=== PATIENT | female | born 1930 | race Caucasian/White ===

== ENCOUNTER 2016-11-11 09:11 | Inpatient (IN) | payer MEDICARE ==
[2016-11-11] MEDS ORDERED: ATENOLOL 25 MG TAB PO STA (10:26)
[2016-11-11] MEDS ORDERED: LISINOPRIL 20 MG TAB PO STA (10:27)
--- NOTE | 2016-11-11 11:01 | XR ---
EXAMINATION TYPE: XR chest 1V portable DATE OF EXAM: 11/11/2016 COMPARISON: 01/22/2015 HISTORY: Fall TECHNIQUE: Single frontal view of the chest is obtained. FINDINGS: There is no focal air space opacity, pleural effusion, or pneumothorax seen. There is pulm onary hyperinflation and biapical lucency compatible with underlying COPD. Cardiac silhouette is enla rged with a dual lead left-sided cardiac device in place. No displaced fractures are seen. IMPRESSION: 1. No acute cardiopulmonary process. 2. No displaced fractures.
--- NOTE | 2016-11-11 11:02 | XR ---
EXAMINATION TYPE: XR pelvis AP view DATE OF EXAM: 11/11/2016 CLINICAL HISTORY: pain TECHNIQUE: Single view the pelvis is submitted. FINDINGS: Small cortical protuberance inferior pubic ramus on the left could reflect small avulsion o r chip type fracture. Correlate clinically with point tenderness. Joint spaces are well-preserved. S I joints appear symmetric. IMPRESSION: 1. Small cortical protuberance inferior pubic ramus on the left could reflect small avulsion or chip type fracture. Correlate clinically with point tenderness.
--- NOTE | 2016-11-11 11:03 | XR ---
EXAMINATION TYPE: XR Hip Complete LT DATE OF EXAM: 11/11/2016 COMPARISON: NONE HISTORY: Pain TECHNIQUE: 2 views submitted FINDINGS: There is no evidence of erosive change or acute fracture. Mild concentric narrowing the joint space. Mild hypertrophic change of the acetabulum can result in f emoral acetabular impingement. IMPRESSION: 1. No evidence of acute fracture or dislocation. If there is high clinical suspicion then consider CT scan. 2. 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
[2016-11-11 11:45] LABS: Basophils % (A) 0 %; CH 31.9; CHCM 34.2; Eosinophils # (A) 0.1 k/uL (0-0.7); Eosinophils % (A) 1 %; HCT 43.9 % (34.0-46.0); HDW 2.67; HGB 14.7 gm/dL (11.4-16.0); Luc # (Auto) 0.07; Luc % (Auto) 1; Lymphocytes # (A) 1.3 k/uL (1.0-4.8); Lymphocytes % (A) 14 %; MCH 31.4 pg (25.0-35.0); MCHC 33.5 g/dL (31.0-37.0); MCV 93.7 fL (80.0-100.0); Mean Platelet Volume 9.2; Monocytes # (A) 0.5 k/uL (0-1.0); Monocytes % (A) 5 %; Neutrophils # (A) 7.5 k/uL (1.3-7.7); Neutrophils % (A) 80 %; RBC 4.68 m/uL (3.80-5.40); RDW 14.1 % (11.5-15.5); WBC 9.4 k/uL (3.8-10.6); WBC (Perox) 9.23
[2016-11-11 11:49] LABS: INR 1.3 (<1.2); Partial Thromboplastin Time 28.5 sec (22.0-30.0); Prothrombin Time 13.2 sec (9.0-12.0)
[2016-11-11 11:52] LABS: ALT 43 U/L (9-52); AST 43 U/L (14-36); Alkaline Phosphatase 66 U/L (38-126); Anion Gap 8 mmol/L; Blood Urea Nitrogen 24 mg/dL (7-17); Calcium 9.3 mg/dL (8.4-10.2); Carbon Dioxide 27 mmol/L (22-30); Chloride 107 mmol/L (98-107); Glucose 75 mg/dL (74-99); Non-African American GFR(MDRD) >60 (>60 ml/min/1.73 sqM); Sodium 142 mmol/L (137-145); Total Bilirubin 0.9 mg/dL (0.2-1.3); Total Protein 6.6 g/dL (6.3-8.2)
[2016-11-11 11:55] LABS: Potassium 4.6 mmol/L (3.5-5.1)
--- NOTE | 2016-11-11 13:31 | CT ---
EXAMINATION TYPE: CT pelvis wo con DATE OF EXAM: 11/11/2016 COMPARISON: NONE HISTORY: Fall, Lt hip pain CT DLP: 291.1 mGycm Automated exposure control for dose reduction was used. Unenhanced CT of the pelvis was performed. Bone and soft tissue window settings are submitted. FINDINGS: There is nondisplaced fracture involving the inferior pubic ramus on the left. No additional fracture s are identified with certainty. Degenerative narrowing of bilateral hip joints and sacroiliac joints . Severe degenerative disc disease L5-S1 with posterior disc bulging encapsulating spur. IMPRESSION: VIRTUALLY NONDISPLACED FRACTURE LEFT INFERIOR PUBIC RAMUS.
--- NOTE | 2016-11-11 14:25 | ED ---
General Adult HPI - General Chief complaint: Fall Stated complaint: Fall-Hip Pain Time Seen by Provider: 11/11/16 09:17 Source: patient, family, EMS, RN notes reviewed Mode of arrival: EMS Limitations: no limitations - History of Present Illness Initial comments: 86 female with past medical history of atrial fibrillation on Xarelto presents status post fall. Patient was moving a throw rug and tripped falling onto her left side. She is complaining of left hip pain. Pain is sharp and nonradiating. 5 out of 10. No head or neck trauma, no loss of consciousness. Patient denies any chest pain or abdominal pain. Denies palpitations or lightheadedness prior to the fall. Fall was mechanical in nature. She does have a history of a pacemaker placement secondary to atrial fibrillation. - Related Data Home Medications Medication Instructions Recorded Confirmed Latanoprost Ophth [Xalatan 0.005%] 1 drop LEFT EYE HS 01/08/15 11/11/16 Lisinopril [Prinivil] 20 mg PO DAILY 01/08/15 11/11/16 Atenolol [Tenormin] 25 mg PO BID 11/08/15 11/11/16 Previous Rx's Medication Instructions Recorded Rivaroxaban [Xarelto] 15 mg PO DAILY #30 tab 04/22/14 Allergies Allergy/AdvReac Type Severity Reaction Status Date / Time No Known Allergies Allergy Verified 11/11/16 09:48 Review of Systems ROS Statement: Those systems with pertinent positive or pertinent negative responses have been documented in the HPI. ROS Other: All systems not noted in ROS Statement are negative. Past Medical History Past Medical History: Atrial Flutter, CVA/TIA, Eye Disorder, Hyperlipidemia, Hypertension, Syncope Additional Past Medical History / Comment(s): Pt states she had a TIA back in 2001. pt states she has changed her deit to improve her chostol and is unsure of what it is now. Other HX: TIA 2001, HTN which pt has been weaned and taken off of her htn med. She has not had her B/P med for approximately 6 months. Constipation which is well managed with metamucil. History of Any Multi-Drug Resistant Organisms: None Reported Past Surgical History: Adenoidectomy, Hysterectomy, Tonsillectomy Additional Past Surgical History / Comment(s): Bilateral cataract surgery with lens implants. Colonoscopy with was normal. Past Anesthesia/Blood Transfusion Reactions: No Reported Reaction Additional Past Anesthesia/Blood Transfusion Reaction / Comment(s): Pt has never recieved blood. Past Psychological History: No Psychological Hx Reported Smoking Status: Never smoker Past Alcohol Use History: None Reported Past Drug Use History: None Reported - Past Family History Father Family Medical History: Myocardial Infarction ([place]) Additional Family Medical History / Comment(s): Father of blood infection that caused myocardial infarction when he was 27 yrs old Mother Family Medical History: Cancer Additional Family Medical History / Comment(s): Mother of cancer in her throat believed to be caused by her being a smoker. General Exam Limitations: no limitations General appearance: alert, in no apparent distress Head exam: Present: atraumatic, normocephalic Eye exam: Present: normal appearance, PERRL, EOMI ENT exam: Present: normal exam Neck exam: Present: normal inspection, full ROM. Absent: tenderness, meningismus Respiratory exam: Present: normal lung sounds bilaterally. Absent: respiratory distress, wheezes Cardiovascular Exam: Present: normal rhythm, bradycardia GI/Abdominal exam: Present: soft. Absent: distended, tenderness, guarding Extremities exam: Present: normal inspection, tenderness, normal capillary refill, other (Tenderness with rotation of the left lower extremity). Absent: pedal edema Back exam: Present: normal inspection, full ROM. Absent: tenderness Neurological exam: Present: alert, oriented X3, CN II-XII intact. Absent: motor sensory deficit Psychiatric exam: Present: normal affect, normal mood Skin exam: Present: warm, dry, intact. Absent: cyanosis, diaphoretic Course Vital Signs 11/11/16 11/11/16 11/11/16 09:16 10:19 10:27 Temperature 97.0 F L Pulse Rate 53 L 50 L 50 L Respiratory 20 20 18 Rate Blood Pressure 213/91 180/86 210/93 O2 Sat by Pulse 98 95 98 Oximetry 11/11/16 11/11/16 11/11/16 10:52 11:08 12:10 Temperature Pulse Rate 50 L Respiratory 17 Rate Blood Pressure 204/89 199/88 163/76 O2 Sat by Pulse 98 Oximetry 11/11/16 11/11/16 13:00 13:47 Temperature Pulse Rate 65 77 Respiratory 18 18 Rate Blood Pressure 123/68 131/64 O2 Sat by Pulse 96 95 Oximetry EKG Findings - EKG Comments: EKG Findings:: With a rate of 59, AR interval 208, QRS duration 78, QTC [address] segment elevation or depression Medical Decision Making - Medical Decision Making 86 yo female presenting status post ground-level fall which was mechanical. Patient has left hip pain. X-ray shows no acute bony abnormalities. There is high clinical suspicion for cold fracture CT of the pelvis is obtained which does show a left inferior ramus fracture which is nondisplaced. Chest x-ray shows no acute findings. Laboratory studies including CBC, CMP, is unremarkable. Case is discussed with transferring facility Radha Carbajal. Patient will be transferred for evaluation by orthopedic surgery. Patient is agreeable with this plan. Diagnosis: Nondisplaced left inferior pubic rami fracture - Lab Data Result diagrams: 11/11/16 11:27 11/11/16 11:27 Lab Results 11/11/16 11/11/16 11/11/16 Range/Units 11:27 11:27 11:27 WBC 9.4 (3.8-10.6) k/uL RBC 4.68 (3.80-5.40) m/uL Hgb 14.7 (11.4-16.0) gm/dL Hct 43.9 (34.0-46.0) % MCV 93.7 (80.0-100.0) fL MCH 31.4 (25.0-35.0) pg MCHC 33.5 (31.0-37.0) g/dL RDW 14.1 (11.5-15.5) % Plt Count 120 L (150-450) k/uL Neutrophils % 80 % Lymphocytes % 14 % Monocytes % 5 % Eosinophils % 1 % Basophils % 0 % Neutrophils # 7.5 (1.3-7.7) k/uL Lymphocytes # 1.3 (1.0-4.8) k/uL Monocytes # 0.5 (0-1.0) k/uL Eosinophils # 0.1 (0-0.7) k/uL Basophils # 0.0 (0-0.2) k/uL PT (9.0-12.0) sec INR (<1.2) APTT (22.0-30.0) sec Sodium 142 (137-145) mmol/L Potassium 4.6 (3.5-5.1) mmol/L Chloride 107 (98-107) mmol/L Carbon Dioxide 27 (22-30) mmol/L Anion Gap 8 mmol/L BUN 24 H (7-17) mg/dL Creatinine 0.84 (0.52-1.04) mg/dL Est GFR (MDRD) Af Amer >60 (>60 ml/min/1.73 sqM) Est GFR (MDRD) Non-Af >60 (>60 ml/min/1.73 sqM) Glucose 75 (74-99) mg/dL Calcium 9.3 (8.4-10.2) mg/dL Total Bilirubin 0.9 (0.2-1.3) mg/dL AST 43 H (14-36) U/L ALT 43 (9-52) U/L Alkaline Phosphatase 66 (38-126) U/L Total Protein 6.6 (6.3-8.2) g/dL Albumin 3.8 (3.5-5.0) g/dL Blood Type A Positive Blood Type Recheck CABO Indicated Antibody Screen NEGATIVE Spec Expiration Date 11/14/2016 - 232611/11/16 Range/Units 11:27 WBC (3.8-10.6) k/uL RBC (3.80-5.40) m/uL Hgb (11.4-16.0) gm/dL Hct (34.0-46.0) % MCV (80.0-100.0) fL MCH (25.0-35.0) pg MCHC (31.0-37.0) g/dL RDW (11.5-15.5) % Plt Count (150-450) k/uL Neutrophils % % Lymphocytes % % Monocytes % % Eosinophils % % Basophils % % Neutrophils # (1.3-7.7) k/uL Lymphocytes # (1.0-4.8) k/uL Monocytes # (0-1.0) k/uL Eosinophils # (0-0.7) k/uL Basophils # (0-0.2) k/uL PT 13.2 H (9.0-12.0) sec INR 1.3 H (<1.2) APTT 28.5 (22.0-30.0) sec Sodium (137-145) mmol/L Potassium (3.5-5.1) mmol/L Chloride (98-107) mmol/L Carbon Dioxide (22-30) mmol/L Anion Gap mmol/L BUN (7-17) mg/dL Creatinine (0.52-1.04) mg/dL Est GFR (MDRD) Af Amer (>60 ml/min/1.73 sqM) Est GFR (MDRD) Non-Af (>60 ml/min/1.73 sqM) Glucose (74-99) mg/dL Calcium (8.4-10.2) mg/dL Total Bilirubin (0.2-1.3) mg/dL AST (14-36) U/L ALT (9-52) U/L Alkaline Phosphatase (38-126) U/L Total Protein (6.3-8.2) g/dL Albumin (3.5-5.0) g/dL Blood Type Blood Type Recheck Antibody Screen Spec Expiration Date Disposition Clinical Impression: Fall, Pubic ramus fracture Disposition: OTHER INSTITUTION NOT DEFINED Condition: Stable Referrals: Samy Aburto MD [Primary Care Provider] - 1-2 days - Out of Hospital Transfer - Req. Specs Out of Hospital Transfer - Requested Specifics: Other Non-Acute (Dr. Baldev Carbajal)
[2016-11-11] MEDS ORDERED: ONDANSETRON 4 MG/2 ML VIAL IVP PRN (14:49)
[2016-11-11] MEDS ORDERED: NALOXONE 0.4 MG/ML 1 ML VIAL IV PRN (14:49)
[2016-11-11] MEDS ORDERED: ACETAMINOPHEN TAB 325 MG TAB PO PRN (14:49)
[2016-11-11] MEDS ORDERED: MORPHINE SULFATE 4 MG/ML SYRINGE IV PRN (14:49)
[2016-11-11] MEDS: SODIUM CHLORIDE 0.9% 1,000 ML IV SCH (15:10)
[2016-11-11 18:04] VITALS: BMI 22.6
[2016-11-11] MEDS: LATANOPROST 0.005% OPHTH DROPS 2.5 ML BTL LEFT EYE SCH (21:42)
[2016-11-11] MEDS: ATENOLOL 25 MG TAB PO SCH (21:44)
[2016-11-12] MEDS: ATENOLOL 25 MG TAB PO SCH ×2 (08:11→21:12)
[2016-11-12] MEDS: LISINOPRIL 20 MG TAB PO SCH (08:11)
--- NOTE | 2016-11-12 10:40 | P.HPOR ---
History of Present Illness H&P Date: 11/12/16 Chief Complaint: Left hip pain Patient is a pleasant 86-year-old female seen at bedside this morning. She was admitted through the emergency department yesterday, 11/11/2016 after a fall at home resulted in pain at the left hip with ambulating and weightbearing. She slipped while pulling a throw rug. She did not lose consciousness or hit her head. X-rays and computed tomography scan of the pelvis revealed a minimally displaced left inferior pubic rami fracture. No acute appearing femur or hip fracture seen. She was admitted to orthopedics for further evaluation, treatment recommendations. She has no new complaints this morning. She has some left hip pain. The pain is controlled with rest. She denies any radicular complaints including numbness, tingling or weakness. She has no calf pain. Review of systems is negative for fever, chills, chest pain, nausea, vomiting, dizziness, headaches or shortness of breath. Review of Systems All systems: negative Constitutional: Denies chills, Denies fever Eyes: denies blurred vision, denies pain Ears, nose, mouth and throat: Denies headache, Denies sore throat Cardiovascular: Denies chest pain, Denies shortness of breath Respiratory: Denies cough Gastrointestinal: Denies abdominal pain, Denies diarrhea, Denies nausea, Denies vomiting Genitourinary: Denies dysuria, Denies hematuria Musculoskeletal: Denies myalgias Integumentary: Denies pruritus, Denies rash Neurological: Denies numbness, Denies weakness Psychiatric: Denies anxiety, Denies depression Endocrine: Denies fatigue, Denies weight change Past Medical History Past Medical History: Atrial Flutter, CVA/TIA, Eye Disorder, Hyperlipidemia, Hypertension, Syncope Additional Past Medical History / Comment(s): Pt states she had a TIA back in 2001. pt states she has changed her deit to improve her chostol and is unsure of what it is now. Other HX: TIA 2001, HTN which pt has been weaned and taken off of her htn med. She has not had her B/P med for approximately 6 months. Constipation which is well managed with metamucil. History of Any Multi-Drug Resistant Organisms: None Reported Past Surgical History: Adenoidectomy, Hysterectomy, Tonsillectomy Additional Past Surgical History / Comment(s): Bilateral cataract surgery with lens implants. Colonoscopy with was normal. Past Anesthesia/Blood Transfusion Reactions: No Reported Reaction Additional Past Anesthesia/Blood Transfusion Reaction / Comment(s): Pt has never recieved blood. Past Psychological History: No Psychological Hx Reported Additional Psychological History / Comment(s): Pt lives with son but is in her own attached apartment. She is independent. she performs all her own ADL's. She cooks her own food. She drives a car. She uses no assistive devices. Smoking Status: Never smoker Past Alcohol Use History: None Reported Past Drug Use History: None Reported - Past Family History Father Family Medical History: Myocardial Infarction ([place]) Additional Family Medical History / Comment(s): Father of blood infection that caused myocardial infarction when he was 27 yrs old Mother Family Medical History: Cancer Additional Family Medical History / Comment(s): Mother of cancer in her throat believed to be caused by her being a smoker. Medications and Allergies Home Medications Medication Instructions Recorded Confirmed Type RX: Latanoprost Ophth [Xalatan 1 drop LEFT EYE HS 01/08/15 11/11/16 History 0.005%] RX: Lisinopril [Prinivil] 20 mg PO DAILY 01/08/15 11/11/16 History Atenolol [Tenormin] 25 mg PO BID 11/08/15 11/11/16 History Allergies Allergy/AdvReac Type Severity Reaction Status Date / Time No Known Allergies Allergy Verified 11/11/16 09:48 Physical Examination Inspection of the lower extremities is benign. There is no active wounds, lacerations, bleeding, erythema or ecchymoses. Neurovascular status is intact with full motor and sensation throughout bilateral lower extremities. Calves are soft and nontender. 2+ dorsalis pedis pulses and less than 2 second cap refill is present distally. Range of motion of the right hip is benign with active flexion, adduction and abduction. Mild pain with active flexion, adduction and abduction of the left hip. Painless range of motion of bilateral knees, ankle, feet and toes. Results CT of the pelvis shows a minimally displaced left inferior pubic rami fracture. There is no acute appearing hip fractures. No femoral neck fractures or intertrochanteric fractures. - Labs Labs: Abnormal Lab Results - Last 24 Hours (Table) 11/11/16 11/11/16 11/11/16 Range/Units 11:27 11:27 11:27 Plt Count 120 L (150-450) k/uL PT 13.2 H (9.0-12.0) sec INR 1.3 H (<1.2) BUN 24 H (7-17) mg/dL AST 43 H (14-36) U/L H & H 11/11/16 Range/Units 11:27 Hgb 14.7 (11.4-16.0) gm/dL Hct 43.9 (34.0-46.0) % Coagulation 11/11/16 Range/Units 11:27 INR 1.3 H (<1.2) Result Diagrams: 11/11/16 11:27 11/11/16 11:27 - Diagnostic results Hip x-ray: report reviewed, image reviewed Hip CT: report reviewed, image reviewed Assessment and Plan (1) Pubic ramus fracture Narrative/Plan: The patient has been reviewed with Dr. Dyer as well as he has seen her studies. We have recommended weightbearing as tolerated and walking with assist including a walker. No surgical intervention is planned. Continue with pain management, medical management and DVT prophylaxis. She would benefit from transfer to an extended care facility for 1-2 weeks. She may be transferred in the next 1-2 days from an orthopedic standpoint. Status: Acute Time with Patient: Less than 30
[2016-11-12] MEDS ORDERED: HYDROcodone/APAP 5-325MG 1 EACH TAB PO PRN (10:41)
[2016-11-12] MEDS: RIVAROXABAN 15 MG TAB PO SCH (11:24)
[2016-11-12 11:38] LABS: Glucose,Whole Blood 91 mg/dL (75-99)
[2016-11-12] MEDS: SODIUM CHLORIDE 0.9% 1,000 ML IV SCH (18:35)
[2016-11-12] MEDS: LATANOPROST 0.005% OPHTH DROPS 2.5 ML BTL LEFT EYE SCH (21:12)
[2016-11-13] MEDS: RIVAROXABAN 15 MG TAB PO SCH (08:07)
[2016-11-13] MEDS: ATENOLOL 25 MG TAB PO SCH ×2 (08:07→21:39)
[2016-11-13] MEDS: LISINOPRIL 20 MG TAB PO SCH (08:07)
--- NOTE | 2016-11-13 14:13 | P.PN ---
Progress Note - Text Patient is a very pleasant 86-year-old female who is seen and examined at bedside for follow-up evaluation for left inferior pubic rami fracture. Patient states she continues to have some pain on the left side of the pelvis during movement. She has difficulty with getting to the bedside and moving onto a bedpan. She states her pain is well-controlled while lying still. She is quite pleasant has no new complaints. She's been eating and voiding without difficulty. Patient states she was seen and examined this morning by Dr. Aburto but nursing states no orders have been placed for medical consult. Per Dr. Dyer, he would like further evaluation and treatment by medicine. Patient will plan to remain in the hospital over the weekend with plans to discharge to rehabilitation facility this coming 11/15/2016. Patient has no new complaints today. Physical Exam: Patient is awake, alert, and oriented 3 Vital signs stable Good chest excursion with deep inspiration and expiration Abdomen soft nontender No signs or symptoms of DVT; no calf pain Extensor hallucis longus, plantarflexion, and dorsiflexion positive sustained bilateral lower extremities No pain with internal and external rotation of the hips bilaterally Neurovascularly intact bilateral lower extremities Assessment: Left inferior pubic rami fracture Left-sided pelvic pain Status post fall Plan: 1. Patient may continue to weight-bear as tolerated on the left lower extremity and is encouraged to use a walker to aid in ambulation as needed. We' re not currently planing for any acute surgical intervention. We'll plan to have the patient remain in the hospital over the weekend with plans to discharge to rehabilitation facility this coming 11/07/2016. Patient states she would like to work with therapy to see if she is able to increase her mobility and ambulation. I discussed with her at feel this is appropriate and would encourage her to try to increase her mobility and ambulation. We will continue pain control with [place] 5 mg/325 mg. I will also plan to place a consult for Dr. Aburto in medicine for regular medical management. 2. Dr. Aburto to see and examine the patient for further medical management 3. We will continue follow patient closely 4. Patient has been discussed in detail with Dr. Dyer and he agrees with this plan
[2016-11-13] MEDS: SODIUM CHLORIDE 0.9% 1,000 ML IV SCH (16:05)
--- NOTE | 2016-11-13 21:25 | CONS ---
CHIEF COMPLAINT: Pain in the left hip. HISTORY OF PRESENT ILLNESS: This is another admission for this 86 -year-old white female who fell inside her home and landed on the left hip. She came into the emergency room where she was found to have a pelvic fracture. Hip was intact. She has a history of chronic atrial fibrillation with congestive heart failure which is well controlled. She denies any syncope, chest pain, focal or neurological deficits, etc. REVIEW OF SYSTEMS: She has had no headaches, change in vision, or the hearing, focal neurological symptoms, shortness of breath, cough, hemoptysis, palpitations, chest pain, syncope, abdominal pain, nausea and vomiting, diarrhea , melena, hematochezia, jaundice, renal disease, frequency, urgency, dysuria, flank pain, diabetes, etc. PAST MEDICAL HISTORY, FAMILY HISTORY, PERSONAL AND SOCIAL HISTORY: Otherwise unremarkable. She is not allergic to any medications. She is on Lisinopril 20 mg a day, Xarelto 15 mg once a day, Latanoprost ophthalmic solution 0.005% in the left eye once a day, Atenolol 25 mg once a day , Vitamin D3 1000 units a day. Hospitalizations and operations: She was admitted for arrhythmia a year or two ago. Currently has a pacemaker. She never smoked and she does not drink. PHYSICAL EXAMINATION: Blood pressure is 130/76 with a pulse of 74 and irregularly irregular. Respiratory rate 16. In general, she appeared to well developed, well nourished, awake and alert. Skin color is normal. Skin is warm and dry. Lymph nodes not enlarged. Head, ears, eyes, nose, mouth and throat were normal. Carotids ( ). There are no bruits. Neck veins not distended. Thyroid was not enlarged. Chest clear to auscultation and percussion. Cardiac exam demonstrated atrial fibrillation with no murmurs or extra sounds. Abdomen is soft, nontender without visceromegaly or masses. Extremities normal except for left hip. Neurological: Intact. IMPRESSION: 1. Pelvic fracture. 2. Atrial fibrillation with history of congestive heart failure. 3. Bradycardia. RECOMMENDATIONS: None. She is doing well. She should be continued on coagulation and discharged to rehab once she is stable. [facility]
--- NOTE | 2016-11-13 21:27 | PN ---
DATE OF SERVICE: 11/13/16 CHIEF COMPLAINT: Fracture of the left pelvis. HISTORY OF PRESENT ILLNESS: This lady is doing well. She has had no problems. She has had no fever, chills, shortness of breath, abdominal pain, etc. PHYSICAL EXAMINATION: Chest is clear. Cardiac exam is unchanged. Abdomen soft, nontender. IMPRESSION: 1. Pelvic fracture. 2. Atrial fibrillation with history of tachycardia. PLAN: 1. No change in program. 2. To rehab on Tuesday. [facility]
[2016-11-13] MEDS: LATANOPROST 0.005% OPHTH DROPS 2.5 ML BTL LEFT EYE SCH (21:39)
[2016-11-14] MEDS: RIVAROXABAN 15 MG TAB PO SCH (07:52)
[2016-11-14] MEDS: ATENOLOL 25 MG TAB PO SCH ×2 (07:52→21:30)
[2016-11-14] MEDS: LISINOPRIL 20 MG TAB PO SCH (07:52)
--- NOTE | 2016-11-14 10:28 | P.PN ---
Progress Note - Text Patient is a very pleasant 86-year-old female who is seen and examined at bedside for follow-up evaluation for left inferior pubic rami fracture. Patient states she continues to have some pain on the left side of the pelvis during movement. He states since being seen examined yesterday, she was able to transfer to the bedside commode without significant difficulty and without significant pain. She states she did have some pain while trying to transfer back to the bed. She states she did have a bowel movement yesterday. She's not currently complaining of any abdominal pain. She states her pain is well- controlled while lying still. She is quite pleasant and has no new complaints. She's been eating and voiding without difficulty. Patient will plan to remain in the hospital over the weekend with plans to discharge to rehabilitation facility this coming 11/15/2016. Physical Exam: Patient is awake, alert, and oriented 3 Vital signs stable Good chest excursion with deep inspiration and expiration Abdomen soft nontender No signs or symptoms of DVT; no calf pain Extensor hallucis longus, plantarflexion, and dorsiflexion positive sustained bilateral lower extremities No pain with internal and external rotation of the hips bilaterally Neurovascularly intact bilateral lower extremities Assessment: Left inferior pubic rami fracture Left-sided pelvic pain Status post fall Plan: 1. Patient may continue to weight-bear as tolerated on the left lower extremity and is encouraged to use a walker to aid in ambulation as needed. We' re not currently planing for any acute surgical intervention. We'll plan to have the patient remain in the hospital over the weekend with plans to discharge to rehabilitation facility this coming 11/07/2016. Patient states she would like to work with therapy to see if she is able to increase her mobility and ambulation. I discussed with her at feel this is appropriate and would encourage her to try to increase her mobility and ambulation. We will continue pain control with [place] 5 mg/[address] Aburto will continue to follow the patient for further medical management 3. We will continue follow patient closely 4. Patient has been discussed in detail with Dr. Dyer and he agrees with this plan
[2016-11-14] MEDS: SODIUM CHLORIDE 0.9% 1,000 ML IV SCH (17:50)
[2016-11-14] MEDS: LATANOPROST 0.005% OPHTH DROPS 2.5 ML BTL LEFT EYE SCH (21:30)
[2016-11-15] MEDS: LISINOPRIL 20 MG TAB PO SCH (08:06)
[2016-11-15] MEDS: RIVAROXABAN 15 MG TAB PO SCH (08:06)
[2016-11-15] MEDS: ATENOLOL 25 MG TAB PO SCH (08:06)
--- NOTE | 2016-11-15 14:11 | P.DS ---
Providers Date of admission: 11/11/16 14:49 Expected date of discharge: 11/15/16 Attending physician: Raul Dyer Consults: 11/13/16 14:08 Consult Physician Routine Consulting Provider: Samy Aburto Consult Reason/Comments: Medical Management Do you want consulting provider notified?: Yes Primary care physician: Samy Aburto - Discharge Diagnosis(es) (1) Pubic ramus fracture Patient is a pleasant 86-year-old female that was admitted through the emergency department on November 11, 2016. Studies done in the emergency department showed a left inferior pubic rami fracture. She was admitted to orthopedics for further evaluation and management. We recommended weightbearing as tolerated with walker and assist. Also recommended pain management and further care and at an extended care facility. Her hospital course has remained without complication. On day of discharge she is afebrile, vital signs stable, labs within acceptable ranges, benign lower extremities that are neurovascularly intact with 2+ pulses and active motor and positive sensation throughout her lower extremities. Her calves are soft and nontender. Her abdomen is soft nontender. She is tolerating by mouth meds and diet, pain controlled, voiding without difficulty, positive bowel movement, denying calf pain, fever, chills, chest pain or shortness of breath. Review of systems is negative for numbness, tingling, weakness, headaches, slurred speech, dizziness or other. Current Visit: Yes Status: Acute Priority: Medium Patient Condition at Discharge: Stable Plan - Discharge Summary New Discharge Prescriptions: New Docusate [Colace] 100 mg PO BID #60 capsule HYDROcodone/APAP 5-325MG [Whiting 5-325] 1 tab PO Q4HR PRN #60 tab PRN Reason: Pain Continue Rivaroxaban [Xarelto] 15 mg PO DAILY #30 tab Latanoprost Ophth [Xalatan 0.005%] 1 drop LEFT EYE HS Lisinopril [Prinivil] 20 mg PO DAILY Atenolol [Tenormin] 25 mg PO BID Discharge Medication List Rivaroxaban [Xarelto] 15 mg PO DAILY #30 tab 04/22/14 [Rx] Latanoprost Ophth [Xalatan 0.005%] 1 drop LEFT EYE HS 01/08/15 [History] Lisinopril [Prinivil] 20 mg PO DAILY 01/08/15 [History] Atenolol [Tenormin] 25 mg PO BID 11/08/15 [History] Docusate [Colace] 100 mg PO BID #60 capsule 11/12/16 [Rx] HYDROcodone/APAP 5-325MG [Whiting 5-325] 1 tab PO Q4HR PRN #60 tab 11/12/16 [Rx] Follow up Appointment(s)/Referral(s): Samy Aburto MD [Primary Care Provider] - 1-2 days Raul Dyer MD [Medical Doctor] - 2 Weeks Activity/Diet/Wound Care/Special Instructions: Weight-bear as tolerated with walker Follow-up with Dr. Dyer in office Take meds as directed Discharge Disposition: TRANSFER TO SNF/ECF
[2016-11-15 15:18] VITALS: BP 120/71; PULSE 71; RESP 18; TEMP 98.4
[2016-11-15] MEDS: SODIUM CHLORIDE 0.9% 1,000 ML IV SCH (16:39)
--- NOTE | 2016-11-17 09:28 | PN ---
DATE OF SERVICE: 11/14/2016 CHIEF COMPLAINT: Pelvic fracture. HISTORY OF PRESENT ILLNESS: This lady is doing well and is feeling fine. She expects to go to the [facility] tomorrow. She does not have pain when she is bearing weight. PHYSICAL EXAM: Her chest is clear and cardiac exam demonstrates atrial fibrillation and abdomen is soft, nontender. IMPRESSION: 1. Fracture of the pelvis. 2. Atrial fibrillation. PLAN: long-term tomorrow. ASHELY
--- NOTE | 2016-11-17 09:31 | PN ---
DATE OF SERVICE: 11/15/2016 CHIEF COMPLAINT: Pelvic fracture. HISTORY OF PRESENT ILLNESS: This lady is doing well and expects to go to the [facility] today. PHYSICAL EXAM: Her chest is clear and cardiac exam demonstrates atrial fibrillation. The abdomen is soft, nontender. IMPRESSION: Fracture of the pelvis. PLAN: Probably move to a [facility] today. ASHELY
== END 2016-11-15 17:38 | DRG 536 ==
LOC: EC 09:11 → 4MS4W 14:49
PROVIDERS: ADMIT Orthopaedic Surgery; ATTEND Orthopaedic Surgery
DX: S32.592A Other specified fracture of left pubis, initial encounter for closed fracture (principal); I11.0 Hypertensive heart disease with heart failure; I50.9 Heart failure, unspecified; I48.2 Chronic atrial fibrillation; E78.5 Hyperlipidemia, unspecified; K59.00 Constipation, unspecified; Z79.01 Long term (current) use of anticoagulants; Z79.899 Other long term (current) drug therapy; Z86.73 Personal history of transient ischemic attack (TIA), and cerebral infarction without residual deficits; Z90.710 Acquired absence of both cervix and uterus; Z98.42 Cataract extraction status, left eye; Z98.41 Cataract extraction status, right eye; Z96.1 Presence of intraocular lens; Z95.0 Presence of cardiac pacemaker; W01.0XXA Fall on same level from slipping, tripping and stumbling without subsequent striking against object, initial encounter; Y92.009 Unspecified place in unspecified non-institutional (private) residence as the place of occurrence of the external cause; Y93.01 Activity, walking, marching and hiking
CPT/HCPCS: 36415; 71010; 72170; 72192; 73502; 80053; 85025; 85610; 85730; 86850; 86900; 86901; 93005; 96360; 96361; 99285

== ENCOUNTER → 2017-01-10 | Outpatient (CLI) | payer MEDICARE ==
--- NOTE | 2017-01-10 18:48 | BD ---
EXAMINATION TYPE: MG DEXA axial skeleton. DATE OF EXAM: 01/10/2017 COMPARISON: NONE CLINICAL HISTORY: PT IS A 86 YR OLD FEMALE...ICD10 CODE: M81.0 KNOWN OSTEOPOROSIS Height: 62.8 Weight: 145 FRAX RISK QUESTIONS: Alcohol (3 or more units per day): NO Family History (Parent hip fracture): NO Glucocorticoids (More than 3mos): NO (Ex: prednisone, prednisolone, methylprednisolone, dexamethasone, and hydrocortisone). History of Fracture in Adulthood: YES Secondary Osteoporosis: NO 1. Type 1 Diabetes: NO 2. Hyperthyroidism: NO 3. Menopause before 45: NO 4. Malnutrition: NO 5. Chronic liver disease: NO Rheumatoid Arthritis: NO Current Tobacco Use: NO RISK FACTORS HISTORY OF: , OCT 2016 Family History of Osteoporosis: UNSURE Active: BEST SHE CAN Diet low in dairy products/other sources of calcium: NO Postmenopausal woman: HYST AT AGE 43 Lost more than 2 inches in height since high school: YES Frequent falls: UNSTEADY, ELDERLY Poor Health: JUST FRAIL Hyperparathyroidism: NO Adrenal Insufficiency: NO MEDICATIONS: Additional Medications: CALCIUM AND VIT D, BP MEDS, XER ALTO Additional History: NONE TO NOTE EXAM MEASUREMENTS: Bone mineral densitometry was performed using the [employer] System. Bone mineral density as measured about the Lumbar spine is: ----- L1-L4(G/cm2): 0.853 T Score Values are as follows: ----- L1: -3.3 ----- L2: -2.9 ----- L3: -2.4 ----- L4: -3.2 ----- L1-L4: -2.9 Bone mineral density FIRST BONE DENSITY AT [facility] Bone mineral density about the R hip (g/cm2): 0.884 Bone mineral density about the L hip (g/cm2): 0.866 T Score values are as follows: -----R Neck: -1.6 -----L Neck: -1.8 -----R Total: -1.0 -----L Total: -1.1 Bone mineral density FIRST SCAN AT [facility] FOR HER FRAX%'S: THERE IS A 18.4% CHANCE OF A MAJOR OSTEOPOROTIC FX AND A 5.2% FOR HIP FX.....PROBABILITY O F FX IN 10 YRS TIME IMPRESSION: 1. Osteoporosis (T Score less than -2.5) as noted by T Score values at the lumbar spine There is increased fracture risk and therapy is usually indicated based on age. Re-Screen 1-2 years. Osteopenia (T Score between -2.5 and -1 as noted by T score values at the bilateral hips There is slightly increased risk of fracture and the patient may be considered for treatment. Re-Screen 2-5 years. NOTE: T-SCORE=SD OF THE YOUNG ADULT MEAN.
== END | disposition home or self-care (01) ==
LOC: RADBDWWP 14:55
PROVIDERS: ATTEND Family Medicine
DX: M81.0 Age-related osteoporosis without current pathological fracture (principal); M85.851 Other specified disorders of bone density and structure, right thigh; M85.852 Other specified disorders of bone density and structure, left thigh
CPT/HCPCS: 77080

== ENCOUNTER 2017-02-02 11:17 | Inpatient (IN) | payer MEDICARE ==
[2017-02-02] MEDS ORDERED: SODIUM CHLORIDE 0.9% 500 ML IV STA (12:02)
--- NOTE | 2017-02-02 12:11 | ED ---
General Adult HPI - General Chief complaint: Urogenital Stated complaint: UNABLE TO URINATE Time Seen by Provider: 02/02/17 11:39 Source: patient, family, RN notes reviewed Mode of arrival: wheelchair Limitations: no limitations - History of Present Illness Initial comments: 86-year-old female presents emergency department with a chief complaint of issues with urination. She states she has not urinated as much as she normally does. She states that sometimes of a good stream. He dribbles and it will be hard to go. She states she has no pain no nausea or vomiting. She states that she was concerned so she thought that she should be seen. Patient states this started last night. Patient denies any recent fever, chills, shortness of breath , chest pain, back pain, abdominal pain, nausea vomiting, numbness or tingling, dysuria or hematuria, constipation or diarrhea, headaches or visual changes, or any other current symptoms. - Related Data Home Medications Medication Instructions Recorded Confirmed Latanoprost Ophth [Xalatan 0.005%] 1 drop LEFT EYE HS 01/08/15 02/02/17 Atenolol [Tenormin] 25 mg PO BID 11/08/15 02/02/17 Calcium Carbonate/Vitamin D3 1 tab PO BID 02/02/17 02/02/17 [Calcium 600-Vit D3 200 Tablet] Cholecalciferol [Vitamin D3] 1,000 unit PO DAILY 02/02/17 02/02/17 Furosemide [Lasix] 40 mg PO DAILY 02/02/17 02/02/17 Lisinopril [Zestril] 15 mg PO DAILY 02/02/17 02/02/17 Potassium Chloride ER [K-Dur 10] 10 meq PO BID 02/02/17 02/02/17 Rivaroxaban [Xarelto] 10 mg PO DAILY 02/02/17 02/02/17 metroNIDAZOLE 0.75% CREAM 1 applic TOPICAL HS 02/02/17 02/02/17 [Metrocream] Allergies Allergy/AdvReac Type Severity Reaction Status Date / Time No Known Allergies Allergy Verified 02/02/17 12:17 Review of Systems ROS Statement: Those systems with pertinent positive or pertinent negative responses have been documented in the HPI. ROS Other: All systems not noted in ROS Statement are negative. Past Medical History Past Medical History: Atrial Flutter, CVA/TIA, Eye Disorder, Hyperlipidemia, Hypertension, Syncope Additional Past Medical History / Comment(s): pelvic fx oct from fall History of Any Multi-Drug Resistant Organisms: None Reported Past Surgical History: Adenoidectomy, Hysterectomy, Tonsillectomy Additional Past Surgical History / Comment(s): Bilateral cataract surgery with lens implants. Colonoscopy with was normal. Past Anesthesia/Blood Transfusion Reactions: No Reported Reaction Additional Past Anesthesia/Blood Transfusion Reaction / Comment(s): Pt has never recieved blood. Past Psychological History: No Psychological Hx Reported Smoking Status: Never smoker Past Alcohol Use History: None Reported Past Drug Use History: None Reported - Past Family History Father Family Medical History: Myocardial Infarction ([place]) Additional Family Medical History / Comment(s): Father of blood infection that caused myocardial infarction when he was 27 yrs old Mother Family Medical History: Cancer Additional Family Medical History / Comment(s): Mother of cancer in her throat believed to be caused by her being a smoker. General Exam - General Exam Comments Initial Comments: General: The patient is awake and alert, in no distress, and does not appear acutely ill. Eye: Pupils are equal, round and reactive to light, extra-ocular movements are intact; there is normal conjunctiva bilaterally. No signs of icterus. Ears, nose, mouth and throat: There are moist mucous membranes. Neck: The neck is supple, there is no tenderness. Cardiovascular: There is a regular rate and rhythm. No murmur, rub or gallop is appreciated. Respiratory: Lungs are clear to auscultation, respirations are non-labored, breath sounds are equal. No wheezes, stridor, rales, or rhonchi. Gastrointestinal: Soft, non-distended, non-tender abdomen without masses or organomegaly noted. There is no rebound or guarding present. No CVA tenderness. Bowel sounds are unremarkable. Back: There is no tenderness to palpation in the midline. There is no obvious deformity. No rashes noted. Musculoskeletal: Normal ROM, no tenderness, There is no pedal edema. There is no calf tenderness or swelling. Sensation intact. Pulses equal bilaterally 2+. Neurological: CN II-XII intact, There are no obvious motor or sensory deficits. Coordination appears grossly intact. Speech is normal. Skin: Skin is warm and dry and no rashes or lesions are noted. Psychiatric: Cooperative, appropriate mood & affect, normal judgment. Limitations: no limitations Course Vital Signs 02/02/17 02/02/17 02/02/17 11:19 13:00 14:27 Temperature 96 F L 97.5 F L Pulse Rate 76 72 Respiratory 16 18 16 Rate Blood Pressure 125/76 160/82 O2 Sat by Pulse 100 100 Oximetry Medical Decision Making - Medical Decision Making 86-year-old female presents with concern for urination. She has urinated 3-4 times since last night sometimes a normal stream sometimes it trickling type strain. At this time the patient's laboratory is been reviewed that does show elevated pain. Concerns. CAT scan is reviewed and does not show a cause for this. At this time we will admit the patient per return to request. We'll continue IV hydration for the patient. Patient is in agreement this plan all questions have been answered. - Lab Data Result diagrams: 02/02/17 12:25 02/02/17 12:25 Lab Results 02/02/17 02/02/17 02/02/17 Range/Units 12:25 12:25 12:32 WBC 4.0 (3.8-10.6) k/uL RBC 4.32 (3.80-5.40) m/uL Hgb 13.0 (11.4-16.0) gm/dL Hct 40.6 (34.0-46.0) % MCV 93.8 (80.0-100.0) fL MCH 30.1 (25.0-35.0) pg MCHC 32.0 (31.0-37.0) g/dL RDW 15.9 H (11.5-15.5) % Plt Count 121 L (150-450) k/uL Neutrophils % 73 % Lymphocytes % 16 % Monocytes % 8 % Eosinophils % 1 % Basophils % 0 % Neutrophils # 2.9 (1.3-7.7) k/uL Lymphocytes # 0.6 L (1.0-4.8) k/uL Monocytes # 0.3 (0-1.0) k/uL Eosinophils # 0.0 (0-0.7) k/uL Basophils # 0.0 (0-0.2) k/uL Hypochromasia Slight Sodium 138 (137-145) mmol/L Potassium 4.1 (3.5-5.1) mmol/L Chloride 105 (98-107) mmol/L Carbon Dioxide 26 (22-30) mmol/L Anion Gap 7 mmol/L BUN 24 H (7-17) mg/dL Creatinine 0.86 (0.52-1.04) mg/dL Est GFR (MDRD) Af Amer >60 (>60 ml/min/1.73 sqM) Est GFR (MDRD) Non-Af >60 (>60 ml/min/1.73 sqM) Glucose 76 (74-99) mg/dL Calcium 9.4 (8.4-10.2) mg/dL Total Bilirubin 0.6 (0.2-1.3) mg/dL AST 167 H (14-36) U/L ALT 111 H (9-52) U/L Alkaline Phosphatase 132 H (38-126) U/L Total Protein 5.8 L (6.3-8.2) g/dL Albumin 3.2 L (3.5-5.0) g/dL Amylase 136 H (30-110) U/L Lipase 685 H (23-300) U/L Urine Color Light Yellow Urine Appearance Clear (Clear) Urine pH 7.0 (5.0-8.0) Ur Specific [place] 1.003 (1.001-1.035) Urine Protein Negative (Negative) Urine Glucose (UA) Negative (Negative) Urine Ketones Negative (Negative) Urine Blood Negative (Negative) Urine Nitrite Negative (Negative) Urine Bilirubin Negative (Negative) Urine Urobilinogen <2.0 (<2.0) mg/dL Ur Leukocyte Esterase Negative (Negative) - Radiology Data Radiology results: report reviewed, image reviewed Disposition Clinical Impression: Elevated liver enzymes, Elevated pancreatic enzyme, Sacral insufficiency fracture Disposition: ADMITTED IP TO THIS [facility] Condition: Stable Referrals: Samy Aburto MD [Primary Care Provider] - 1-2 days Decision Date: 02/02/17 Decision Time: 15:14
[2017-02-02 12:42] LABS: Basophils % (A) 0 %; CH 29.2; CHCM 31.3; Eosinophils % (A) 1 %; HCT 40.6 % (34.0-46.0); HDW 2.74; Hypochromasia Slight; Luc # (Auto) 0.06; Luc % (Auto) 2; Lymphocytes # (A) 0.6 k/uL (1.0-4.8); Lymphocytes % (A) 16 %; MCH 30.1 pg (25.0-35.0); MCV 93.8 fL (80.0-100.0); Mean Platelet Volume 10.1; Monocytes # (A) 0.3 k/uL (0-1.0); Monocytes % (A) 8 %; Neutrophils # (A) 2.9 k/uL (1.3-7.7); Neutrophils % (A) 73 %; RBC 4.32 m/uL (3.80-5.40); RDW 15.9 % (11.5-15.5); WBC (Perox) 3.96
[2017-02-02 12:46] LABS: Appearance,Urine Clear (Clear); Bilirubin,Urine Negative (Negative); Glucose,Urine (UA) Negative (Negative); Ketones,Urine Negative (Negative); Leukocyte Esterase,Urine Negative (Negative); Nitrite,Urine Negative (Negative); Protein,Urine Negative (Negative); Specific Gravity,Urine 1.003 (1.001-1.035); UA Billing (MACRO vs. MICRO) CHEM; Urobilinogen,Urine <2.0 mg/dL (<2.0)
[2017-02-02 13:01] LABS: ALT 111 U/L (9-52); AST 167 U/L (14-36); Alkaline Phosphatase 132 U/L (38-126); Amylase 136 U/L (30-110); Anion Gap 7 mmol/L; Blood Urea Nitrogen 24 mg/dL (7-17); Calcium 9.4 mg/dL (8.4-10.2); Carbon Dioxide 26 mmol/L (22-30); Chloride 105 mmol/L (98-107); Glucose 76 mg/dL (74-99); Non-African American GFR(MDRD) >60 (>60 ml/min/1.73 sqM); Potassium 4.1 mmol/L (3.5-5.1); Sodium 138 mmol/L (137-145); Total Bilirubin 0.6 mg/dL (0.2-1.3); Total Protein 5.8 g/dL (6.3-8.2)
[2017-02-02] MEDS ORDERED: RX INFO: IV CONTRAST WAS GIVEN 1 EACH MISC MISCELLANE PRN (13:32)
[2017-02-02 14:29] VITALS: RESP 16
--- NOTE | 2017-02-02 14:47 | CT ---
EXAMINATION TYPE: CT abdomen pelvis w con DATE OF EXAM: 02/02/2017 COMPARISON: Prior CT pelvis 11/11/2016 HISTORY: Unable to urinate CT DLP: 1060 mGycm Automated exposure control for dose reduction was used. TECHNIQUE: Helical acquisition of images from the lung bases through the pelvis have been completed. CONTRAST: Performed without Oral Contrast and with IV Contrast, patient injected with 100 ml mL of Omnipaque 30 0. FINDINGS: The heart is enlarged. Intracardiac defibrillator lead noted. LUNG BASES: There is a right greater than left pleural effusion. There is associated atelectasis. AORTA: No significant abnormality is appreciated. LIVER/GB: Liver is borderline enlarged. There is some periportal edema. Prominence of the hepatic vei ns could be due to venous congestion centrally Gallbladder is joint dependent focus of high attenuati on likely a stone. PANCREAS: No significant abnormality is seen. SPLEEN: There is a high attenuation focus at the upper aspect of the spleen which is indeterminate an d measures approximately 13 mm with an oval shape with central low attenuation. ADRENALS: No significant abnormality is seen. KIDNEYS: Upper pole the right kidney shows a cystic focus measuring 11 mm. Lower pole of the left kid sulema shows a cystic focus which measures 2.1 cm. REPRODUCTIVE ORGANS: Not seen BOWEL: There is extensive retained fecal debris present within the rectum, transverse dimension is 8 cm, correlate to exclude impaction. Diverticular change is scattered within the colon. FREE AIR: No Free Air visible. ASCITES: None visible. PELVIC ADENOPATHY: None visualized. RETROPERITONEAL ADENOPATHY: No Retroperitoneal Adenopathy visible. URINARY BLADDER: No significant abnormality is seen. OSSEOUS STRUCTURES: Previously identified inferior pubic ramus fracture, fracture of the pubic bone a t the symphysis shows associated sclerosis, there is some evidence of fracture healing present. Scler osis present within the sacrum bilaterally compatible with insufficiency fractures and healing. No di splacement. Degenerative disc changes, facet arthropathy and the visualized spine. IMPRESSION: SACRAL INSUFFICIENCY FRACTURES NOT IDENTIFIED ON PREVIOUS EXAM. ADDITIONAL PELVIC FRACTURES. BORDERLI NE HEPATOMEGALY. CORRELATE FOR POSSIBLE CONGESTIVE HEART FAILURE, THERE ARE BILATERAL PLEURAL EFFUSIO NS. Indeterminate focus of high attenuation within the spleen could be related to an aneurysm, hemorrhage felt to be less likely, correlate and follow-up. Diverticulosis, postop changes.
[2017-02-02] MEDS ORDERED: NALOXONE 0.4 MG/ML 1 ML VIAL IV PRN (15:14)
[2017-02-02] MEDS ORDERED: SODIUM CHLORIDE 0.9% 1,000 ML IV SCH (15:15)
[2017-02-02 17:52] VITALS: BMI 24.9
[2017-02-02] MEDS: POTASSIUM CHLORIDE ER 10 MEQ TAB.ER.PRT PO SCH (20:26)
[2017-02-02] MEDS: ATENOLOL 25 MG TAB PO SCH (20:26)
[2017-02-02] MEDS: CALCIUM CARB-VIT D 500MG-200UN 1 EACH TAB PO SCH (20:26)
[2017-02-02] MEDS ORDERED: LATANOPROST 0.005% OPHTH DROPS 2.5 ML BTL LEFT EYE SCH (21:00)
[2017-02-03 07:33] VITALS: BP 135/69; PULSE 71; TEMP 96.2
[2017-02-03 07:45] LABS: Basophils % (A) 1 %; CH 29.7; Eosinophils # (A) 0.1 k/uL (0-0.7); Eosinophils % (A) 2 %; HCT 38.8 % (34.0-46.0); HDW 2.82; HGB 11.9 gm/dL (11.4-16.0); Hypochromasia Moderate; Luc % (Auto) 3; Lymphocytes # (A) 1.1 k/uL (1.0-4.8); Lymphocytes % (A) 38 %; MCH 29.6 pg (25.0-35.0); MCHC 30.7 g/dL (31.0-37.0); MCV 96.5 fL (80.0-100.0); Mean Platelet Volume 9.4; Monocytes # (A) 0.3 k/uL (0-1.0); Monocytes % (A) 9 %; Neutrophils # (A) 1.4 k/uL (1.3-7.7); Neutrophils % (A) 48 %; RBC 4.02 m/uL (3.80-5.40); WBC (Perox) 2.96
[2017-02-03 07:55] LABS: ALT 127 U/L (9-52); AST 118 U/L (14-36); Alkaline Phosphatase 135 U/L (38-126); Amylase 74 U/L (30-110); Anion Gap 4 mmol/L; Blood Urea Nitrogen 20 mg/dL (7-17); Calcium 9.4 mg/dL (8.4-10.2); Carbon Dioxide 27 mmol/L (22-30); Chloride 106 mmol/L (98-107); Glucose 67 mg/dL (74-99); Non-African American GFR(MDRD) >60 (>60 ml/min/1.73 sqM); Potassium 4.4 mmol/L (3.5-5.1); Sodium 137 mmol/L (137-145); Total Bilirubin 0.5 mg/dL (0.2-1.3); Total Protein 5.2 g/dL (6.3-8.2)
[2017-02-03] MEDS ORDERED: CHOLECALCIFEROL 1,000 UNIT TAB PO SCH (09:00)
[2017-02-03] MEDS ORDERED: LISINOPRIL 5 MG TAB PO SCH (09:00)
[2017-02-03] MEDS ORDERED: RIVAROXABAN 10 MG TAB PO SCH (09:00)
[2017-02-03] MEDS ORDERED: FUROSEMIDE 40 MG TAB PO SCH (09:00)
[2017-02-03] MEDS: POTASSIUM CHLORIDE ER 10 MEQ TAB.ER.PRT PO SCH (09:40)
[2017-02-03] MEDS: ATENOLOL 25 MG TAB PO SCH (09:40)
[2017-02-03] MEDS: CALCIUM CARB-VIT D 500MG-200UN 1 EACH TAB PO SCH (09:40)
--- NOTE | 2017-02-03 11:46 | HP ---
HISTORY AND PHYSICAL CHIEF COMPLAINT: Inability to urinate. HISTORY OF PRESENT ILLNESS: This is another admission for this 86-year-old white male with history of atrial fibrillation and congestive heart failure and has been doing very well. She thought that she was unable to empty her bladder and finally, after failing to do so, came in to the emergency room where she was evaluated. At that point, she was then able to urinate. She has had no fever, chills, hematuria, dysuria, abdominal pain, etc. In the emergency room, she was noticed to have elevated pancreatic enzymes. She has had absolutely no epigastric discomfort. CT did not demonstrate any pathology. She was admitted for further evaluation for possible pancreatitis or other etiologies. REVIEW OF SYSTEMS: She has had no headaches, neurologic problems, chest pain, shortness of breath, abdominal pain, nausea, vomiting, hematemesis, indigestion, food intolerance, bloating, melena, hematochezia, jaundice, hepatitis, history of cirrhosis, alcoholism, etc. She has had no other urinary complaints. She is not diabetic. She is not allergic to any medication. She is on: 1. KCl 20 mEq twice a day. 2. Lasix 40 mg once a day. 3. Metoprolol 25 mg once a day. 4. Xarelto 15 mg once a day. 5. Lisinopril 20 mg once a day. 6. Latanoprost eye drops. 7. Vitamin D3 one thousand units a day. 8. Calcium. Past medical history, family history, personal and social histories are unremarkable and noncontributory. Otherwise, she does have a pacemaker and she has had no recent syncope, palpations, chest pain, etc. She does not smoke or drink. PHYSICAL EXAMINATION: Blood pressure is 114/72, pulse 72 and irregularly irregular, respirations 14 and she is afebrile. In general, she appeared to be slender and in no acute distress. Skin color was normal and there is no jaundice. The lymph nodes are not enlarged. Head, ears, eyes, nose, mouth, and throat were normal and neck veins were not distended. Thyroid is not enlarged. Chest is clear. There are no rales or rhonchi. The cardiac exam demonstrated atrial fibrillation but no S3 or S4. The abdomen is flat, soft, and nontender and there are no masses or visceromegaly. Bowel sounds are present. Extremities are normal, neurologically is intact. IMPRESSION: 1. Elevated pancreatic enzymes, etiology unknown. 2. Atrial fibrillation. 3. Difficulty voiding. PLAN: 1. Bed rest. 2. IV fluids. 3. Workup elevated pancreatic enzymes. MMHERMANNL / IJN: [id number] /
--- NOTE | 2017-02-03 12:07 | DS ---
DISCHARGE SUMMARY CHIEF COMPLAINT: Elevated pancreatic enzymes and inability to empty the bladder. HISTORY OF PRESENT ILLNESS AND PHYSICAL EXAM: The details of this lady's history and physical can be found in the initial workup. LABORATORY STUDIES: While she was in the hospital she had laboratory studies, details which can be found in the laboratory section of her chart. COURSE IN HOSPITAL: After admission, she was placed on bed rest and she had no trouble voiding. The pancreatic enzymes were elevated as well as her liver function studies. Platelets were also slightly low. She is doing well and was having no other problems and it was felt that she could go home. Her viral hepatitis antibody profile and a CA-19-9 were ordered and she will follow up in the office in few days. She will be continued on workup for her abnormal pancreatic and liver studies as well as the abnormalities on her CBC. FINAL DIAGNOSIS: 1. Difficulty voiding. 2. Elevated liver and pancreatic enzymes. 3. Atrial fibrillation, nonvalvular. 4. History of arrhythmia with pacemaker. OPERATIONS: None. CONSULTATION: None. She is improved. MMODL / SPN: [id number] /
== END 2017-02-03 15:58 | disposition home or self-care (01) | DRG 948 ==
LOC: EC 11:17 → 4MS4W 16:22
PROVIDERS: ADMIT Family Medicine; ATTEND Family Medicine
DX: R74.8 Abnormal levels of other serum enzymes (principal); I50.9 Heart failure, unspecified; I48.91 Unspecified atrial fibrillation; I11.0 Hypertensive heart disease with heart failure; R39.198 Other difficulties with micturition; E78.5 Hyperlipidemia, unspecified; M84.48XD Pathological fracture, other site, subsequent encounter for fracture with routine healing; Z95.0 Presence of cardiac pacemaker; Z79.01 Long term (current) use of anticoagulants; Z79.899 Other long term (current) drug therapy; Z86.73 Personal history of transient ischemic attack (TIA), and cerebral infarction without residual deficits; Z98.41 Cataract extraction status, right eye; Z98.42 Cataract extraction status, left eye; Z96.1 Presence of intraocular lens; Z90.710 Acquired absence of both cervix and uterus
CPT/HCPCS: 36415; 51798; 74177; 80053; 80074; 81003; 82150; 83690; 85025; 86301; 87086; 96360; 99284

== ENCOUNTER → 2017-02-03 | Outpatient (CLI) | payer MEDICARE ==
--- NOTE | 2017-02-03 21:07 | US ---
EXAMINATION TYPE: US venous doppler duplex LE BI DATE OF EXAM: 02/03/2017 4:29 PM COMPARISON: NONE CLINICAL HISTORY: R60.0 Edema. Edema bilateral legs. Patient on blood thinner for history of TIA SIDE PERFORMED: Bilateral TECHNIQUE: The lower extremity deep venous system is examined utilizing real time linear array sonog vinod with graded compression, doppler sonography and color-flow sonography. VESSELS IMAGED: External Iliac Vein (EIV) Common Femoral Vein Deep Femoral Vein Greater Saphenous Vein * Femoral Vein Popliteal Vein Small Saphenous Vein * Proximal Calf Veins (* superficial vessels) Right Leg: No evidence of DVT Left Leg: No evidence of DVT No popliteal IMPRESSION: THIS EXAMINATION IS NEGATIVE FOR DVT IN BOTH LEGS.
== END | disposition home or self-care (01) ==
LOC: RADUSMAIN 15:57
PROVIDERS: ATTEND Family Medicine
DX: R60.0 Localized edema (principal)
CPT/HCPCS: 93970